=== PATIENT | male | born 1955 | race Hispanic/Latino ===

== ENCOUNTER 2021-01-22 11:29 | Emergency (ER) | payer OTHER ==
[2021-01-22 12:31] VITALS: BP 126/75
--- NOTE | 2021-01-22 15:04 | Emergency Department Report ---
ED Back Pain/Injury HPI - General Chief Complaint: Back Pain/Injury Stated Complaint: SEVERE PAIN IN SIDE HURTS TO TWIST AND BEND Time Seen by Provider: 01/22/21 14:53 Source: patient Limitations: No Limitations - History of Present Illness Initial Comments: Patient is a 65-year-old male presents emergency room complaints of right lower back pain that began a couple days ago. 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 He denies any fall or injury. He states he has had this pain before. States his pain is worse with bending and twisting. He states he feels like a pulled muscle. He denies any fever, nausea, vomiting, diarrhea, abdominal pain, urinary symptoms, numbness, weakness, bowel or bladder incontinence. Patient denies any past medical history. No allergies to medications. - Related Data Previous Rx's Medication Instructions Recorded Last Taken Type Meloxicam [Mobic] 7.5 mg PO QDAY PRN #14 tablet 01/22/21 Unknown Rx Menthol/Camphor [[place] 1 applicatio TP BID #18 oint...g. 01/22/21 Unknown Rx Ointment] methOCARBAMOL [Robaxin TAB] 500 mg PO BID PRN 10 Days #20 01/22/21 Unknown Rx tablet Allergies Allergy/AdvReac Type Severity Reaction Status Date / Time No Known Allergies Allergy Unverified 01/22/21 12:26 ED Review of Systems ROS: Stated complaint: SEVERE PAIN IN SIDE HURTS TO TWIST AND BEND Other details as noted in HPI Comment: All other systems reviewed and negative ED Past Medical Hx - Past Medical History Previous Medical History?: No - Surgical History Past Surgical History?: No - Medications Home Medications: Home Medications Medication Instructions Recorded Confirmed Last Taken Type Meloxicam [Mobic] 7.5 mg PO QDAY PRN #14 tablet 01/22/21 Unknown Rx Menthol/Camphor [[place] 1 applicatio TP BID #18 oint...g. 01/22/21 Unknown Rx Ointment] methOCARBAMOL [Robaxin TAB] 500 mg PO BID PRN 10 Days #20 01/22/21 Unknown Rx tablet ED Physical Exam - General Limitations: No Limitations General appearance: alert, in no apparent distress - Head Head exam: Present: atraumatic, normocephalic - Eye Eye exam: Present: normal appearance - ENT ENT exam: Present: mucous membranes moist - Neck Neck exam: Present: normal inspection, full ROM. Absent: tenderness, meningismus - Respiratory Respiratory exam: Present: normal lung sounds bilaterally. Absent: respiratory distress, wheezes, rales, rhonchi, stridor, chest wall tenderness, accessory muscle use, decreased breath sounds, prolonged expiratory - Cardiovascular Cardiovascular Exam: Present: regular rate, normal rhythm, normal heart sounds. Absent: systolic murmur, diastolic murmur, rubs, gallop - Back Exam Back exam: Present: normal inspection, full ROM, paraspinal tenderness (right lumbar paraspinal muscular ttp, no midline C-spine, T-spine or L-spine ttp, no step offs, no deformities, no edema or erythema ). Absent: vertebral tenderness - Neurological Exam Neurological exam: Present: alert, oriented X3, CN II-XII intact, normal gait. Absent: motor sensory deficit - Psychiatric Psychiatric exam: Present: normal affect, normal mood - Skin Skin exam: Present: warm, dry, intact ED Course Vital Signs 01/22/21 12:29 Temperature 97.9 F Pulse Rate 59 L Respiratory 18 Rate Blood Pressure 126/75 O2 Sat by Pulse 98 Oximetry ED Medical Decision Making - Medical Decision Making Patient is a 65-year-old male presents emergency room complaints of right lower back pain that began a couple days ago. 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 He denies any fall or injury. He states he has had this pain before. States his pain is worse with bending and twisting. He states he feels like a pulled muscle. He denies any fever, nausea, vomiting, diarrhea, abdominal pain, urinary symptoms, numbness, weakness, bowel or bladder incontinence. Patient denies any past medical history. No allergies to medications. Vitals are normal. On exam:right lumbar paraspinal muscular ttp, no midline C-spine, T-spine or L-spine ttp, no step offs, no deformities, no edema or erythema, no focal neuro deficits. Examination appears consistent with lumbar strain likely secondary to the work patient does. He has no red flag warning signs of back pain, no trauma, no unexplained weight loss, no fever, no IV drug use, no steroid use, no history of cancer. Patient given prescriptions for medications. Patient will be referred to primary care and benefits specialist recruiter. Advised patient Please use medication as prescribed. Do not drive or operate machinery while taking muscle relaxer Robaxin. May use ice pack, heating pad, rest, epsom salt bath. Do not use heat or ice while using [place] balm ointment. Follow-up with your primary care doctor. Follow-up with a benefits specialist recruiter. Return to emergency room for new or worsening symptoms. Critical care attestation.: If time is entered above; I have spent that time in minutes in the direct care of this critically ill patient, excluding procedure time. ED Disposition Clinical Impression: Low back pain Qualifiers: Chronicity: acute Back pain laterality: right Sciatica presence: without sciatica Qualified Code(s): M54.5 - Low back pain Disposition: TO HOME OR SELFCARE Is pt being admited?: No Does the pt Need Aspirin: No Condition: Stable Instructions: Lumbar Strain Additional Instructions: Please use medication as prescribed. Do not drive or operate machinery while taking muscle relaxer Robaxin. May use ice pack, heating pad, rest, epsom salt bath. Do not use heat or ice while using [place] balm ointment. Follow-up with your primary care doctor. Follow-up with a benefits specialist recruiter. Return to emergency room for new or worsening symptoms. Prescriptions: Meloxicam [Mobic] 7.5 mg PO QDAY PRN #14 tablet PRN Reason: pain methOCARBAMOL [Robaxin TAB] 500 mg PO BID PRN 10 Days #20 tablet PRN Reason: muscle spasm/pain Menthol/Camphor [[place] Ointment] 1 applicatio TP BID #18 oint...g. Referrals: WILLOW HAMM MD [Staff Physician] - 2-3 Days [facility] [Provider Group] - 2-3 Days [facility] [Provider Group] - 2-3 Days CHUCK DIOP II, MD [Staff Physician] - 2-3 Days Forms: Work/School Release Form(ED) Time of Disposition: 15:02 Print Language: [place]
== END 2021-01-22 15:04 | disposition home or self-care (01) ==
LOC: ED 11:29
DX: M54.5 Low back pain (principal)
CPT/HCPCS: 99281